=== PATIENT | male | born 1930 | race Caucasian/White ===

== ENCOUNTER 2020-06-29 12:29 | Emergency (ER) | payer OTHER ==
[~2020-06-29] VITALS: Ht 175.3 cm; Wt 90.7 kg
[~2020-06-29 12:29] MED LIST: AMLO5 PO; ANTI-INFLAMMATORY; ASPI325EC PO; ATOR40TA PO; ATORVASTATIN CA40 MG; Aspirin EC81 MG; CHOL10002 PO; CLON.2 PO; CLOP75; CYAN1000 PO; GABA100; GABA300 PO; HAWTHORN BERRI565 MG; HYDR1TAB94 PO; Hawthorn Berry500 MG PO; LATA.005SO; LATANOPROST2.5 ML OP; METO50ER; METO50ER PO; MOVE FREE ULTR1 EACH PO; Nitroglycerin0.4 MG SL; OMEP20ER PO; OSTEO BI-FLEX1 EAC2; OXYC5 PO; PAIN RELIEVER500 MG PO; RANI150 PO; TOBR.3OPSO OP; VITAMIN D31000 UNIT; Zantac150 MG PO
[2020-06-29] MEDS ORDERED: Colace250 MG PO (13:44)
[2020-06-29] MEDS ORDERED: Norco 5-325 Ta1 EACH PO (13:44)
== END 2020-06-29 14:12 | disposition home or self-care (01) ==
LOC: ER 12:29
DX: S42.202A Unspecified fracture of upper end of left humerus, initial encounter for closed fracture (principal); I25.2 Old myocardial infarction; I10 Essential (primary) hypertension; Z95.5 Presence of coronary angioplasty implant and graft; Z91.018 Allergy to other foods; Z91.02 Food additives allergy status; Z79.899 Other long term (current) drug therapy; Z79.82 Long term (current) use of aspirin; W01.0XXA Fall on same level from slipping, tripping and stumbling without subsequent striking against object, initial encounter; Y93.89 Activity, other specified
CPT/HCPCS: 29105; 73030; 73200; 99283-25; A9270-GY